=== PATIENT | male | born 1960 | race Caucasian/White ===

== ENCOUNTER 2016-07-20 10:02 | Emergency (ER) | payer BC ==
[~2016-07-20] VITALS: Ht 187.9 cm; Wt 113.4 kg
[~2016-07-20 10:02] MED LIST: ALLOPURINOL300 MG PO; ATARAX25 MG PO; CELEBREX50 MG; CORDROL20 MG PO; EC NAPROSYN500 MG PO; HYDROCODONE BIT1 T11 PO; HYDROCODONE BIT1 T20 PO; INDOMETHACIN50 MG PO; LISINOPRIL-HCTZ 10-1 PO; NAPROSYN500 MG PO; NORCO 325 MG-51 TAB PO; NORCO 5-325 TA1 EACH PO; PARAFON FORTE500 MG PO; PEPCID20 MG PO; PREDNISONE10 MG PO; PREDNISONE20 M1 PO; PREDNISONE20 MG PO; PREDNISONE5 MG PO; VISTARIL50 MG PO; ZYRTEC10 MG PO
[2016-07-20 10:16] LABS: HEMATOCRIT 49.7 % (42.0-52.0); HEMOGLOBIN 15.8 g/dl (14.0-18.0); MEAN CELL VOLUME 94.5 fl (80.0-94.0); MEAN CORPUSCULAR HGB CONC 31.8 g/dl (33.0-37.0); MEAN PLATELET VOLUME 11.7 fl (9.6-12.3); PLATELET COUNT AUTOMATED 216 10*3/uL (130-400); RED BLOOD COUNT 5.26 10*6/uL (4.50-5.90); RED CELL DISTRI WIDTH 15.1 % (0-14.5); WHITE BLOOD COUNT 24.2 10*3/uL (4.8-10.8)
[2016-07-20 10:25] LABS: INTERNATIONAL NORM RATIO 1.6 (2.0-3.5); PROTHROMBIN TIME 17.4 SECONDS (9.0-12.4)
[2016-07-20 10:32] LABS: ALBUMIN 3.3 gm/dl (3.1-4.5); BILIRUBIN, TOTAL 2.5 mg/dl (0.2-1.0); MAGNESIUM 1.7 mg/dL (1.5-2.1); TOTAL PROTEIN 7.5 gm/dL (6.4-8.2)
[2016-07-20 10:35] LABS: ABG CO2 CONTENT 10.2 mmol/L (23-27); ABG HCO3 8.8 mmol/l (22-26); ABG TEMPERATURE 96.9 F (98.0-99.0); ARTERIAL BLOOD GAS PO2 80.5 mmHg (80-90)
[2016-07-20 10:36] LABS: BURR CELLS MODERATE; LYMPHOCYTE # 1.9 10*3/uL (1.3-4.4); METAMYELOCYTES 10 % (0-0); MONOCYTE # 1.5 10*3/uL (0.1-1.0); MYELOCYTES 2 % (0-0); NEUTROPHIL # 17.9 10*3/uL (2.3-7.9); NEUTROPHILS 74 % (47-73); PLATELET SUFFICIENCY NORMAL (NORMAL); TOTAL CELLS COUNTED 100 #CELLS
[2016-07-20 10:37] LABS: VACUOLATION OF NEUTROPHILS SLIGHT
[2016-07-20 10:39] LABS: ABG BASE EXCESS -25.1 mmol/L (-2.0-2.0)
[2016-07-20 10:41] LABS: ARTERIAL BLOOD GAS PH 6.937 (7.35-7.45)
[2016-07-20 10:42] LABS: C-REACTIVE PROTEIN 20.4 MG/DL (0-0.3)
[2016-07-20 10:43] LABS: CKMB 6.2 ng/ml (0.5-3.6); TROPONIN I 0.239 ng/ml (<0.045)
[2016-07-20 12:13] LABS: LA>2 REFLEX 2 HR DRAW NOW
== END 2016-07-20 13:00 | disposition short-term general hospital (02) ==
LOC: ED 10:02
PROVIDERS: Emergency Medicine
DX: R65.21 Severe sepsis with septic shock (principal); N17.9 Acute kidney failure, unspecified; J96.91 Respiratory failure, unspecified with hypoxia; I46.9 Cardiac arrest, cause unspecified; E87.2 Acidosis; J18.9 Pneumonia, unspecified organism; I10 Essential (primary) hypertension; Z79.899 Other long term (current) drug therapy